=== PATIENT | female | born 1985 ===

== ENCOUNTER 2022-05-28 14:02 | Outpatient (REF) | payer SELFPAY ==
--- NOTE | 2022-05-28 15:24 | MHC.AU.HA3 ---
Hearing Instrument Follow-Up- Binaural Date of Visit: 05/28/22 SWIM PLUGS Follow-Up Summary: Lenore wants custom swim plugs in order to be able to swim more comfortably. She reportedly always gets water trapped in her ears and has trouble getting it out afterwards. She has plans to compete in a triathlon so she swims often. Discussed the uses for swim plugs (e.g., surface swimming, showering) and not for deep diving, scuba diving etc. Impressions taken, AU, without incident - Sent to [employer]. Quote $130.00 due at cloth picker. Recommendations: Patient will be contacted when materials have arrived. Recommendations (Other): Lenore will need to pay $130.00 at cloth picker for the swim plugs. Signature: Provider: Rafaela Gomez, [facility]
== END 2022-05-28 14:03 | disposition home or self-care (01) ==
LOC: HO.HAP 14:02
PROVIDERS: Visit Provider Internal Medicine Nephrology
DX: Z13.89 Encounter for screening for other disorder (principal)

== ENCOUNTER 2022-07-06 14:29 | Outpatient (REF) | payer SELFPAY | END 2022-07-06 14:30 | disposition home or self-care (01) | LOC: HO.HAP 14:29 | PROVIDERS: Visit Provider Internal Medicine Nephrology | DX: Z46.1 Encounter for fitting and adjustment of hearing aid (principal) | CPT/HCPCS: V5264 ==